=== PATIENT | male | born 1945 | race Caucasian/White ===

== ENCOUNTER 2024-09-03 07:59 | Day surgery (SDC) | payer MEDICARE, SELFPAY ==
[2024-09-03 08:17] VITALS: BP 140/90; PULSE 83; RESP 20; TEMP 36.3; O2SAT 98
[2024-09-03] MEDS: Tropicam./Phenyleph. (1/2.5%) 5 ML BTL OS ×3 (08:36→08:46)
--- NOTE | 2024-09-03 08:39 | W.ANESPRE ---
General Info Date of Service Date Performed: 09/03/24 Height: 5 ft 7 in Weight: 78.1 kg Body Mass Index (BMI): 26.9 Surgical Procedure: Operation Date: 09/03/24 10:40 Proposed Procedure Side Surgeon p Cataract Extraction with IOL Implant Left Margarito Chong MD Meds Allergies and Home Medications Allergies Allergy/AdvReac Type Severity Reaction Status Date / Time lisinopril Allergy Unknown Unknown Verified 09/03/24 08:33 prednisone Allergy Unknown Unknown Verified 09/03/24 08:33 verapamil Allergy Unknown Unknown Verified 09/03/24 08:33 Home Medication ?Medication ?Instructions ?Recorded acetaminophen 325 mg capsule 650 mg PO Q4H PRN 08/31/24 allopurinol 300 mg tablet 300 mg PO DAILY 08/31/24 amitriptyline 100 mg tablet 125 mg PO DAILY 08/31/24 amitriptyline 75 mg tablet 75 mg PO DAILY 08/31/24 cephalexin 500 mg capsule 500 mg PO DAILY 08/31/24 digoxin 125 mcg (0.125 mg) tablet 125 mcg PO DAILY 08/31/24 (Digitek) ferrous sulfate 325 mg (65 mg 325 mg PO DAILY 08/31/24 iron) tablet (Feosol) finasteride 5 mg tablet 5 mg PO DAILY 08/31/24 melatonin 3 mg capsule 3 mg PO QHS 08/31/24 metoprolol succinate 100 mg 100 mg PO DAILY 08/31/24 capsule sprinkle, ext. release 24 hr mirtazapine 15 mg tablet 15 mg PO DAILY 08/31/24 polyethylene glycol 3350 17 17 g PO DAILY PRN 08/31/24 gram/dose oral powder (ClearLax) potassium chloride 20 mEq 40 meq PO DAILY 08/31/24 tablet,extended release rivaroxaban 15 mg tablet (Xarelto) 15 mg PO DAILY 08/31/24 terazosin 2 mg capsule 2 mg PO BID 08/31/24 torsemide 20 mg tablet 20 mg PO DIRECTED 08/31/24 Current Visit Medications: Current Medications Generic Name Dose Route Start Last Admin Trade Name Freq PRN Reason Stop Dose Admin Acetaminophen 1,000 mg 09/03/24 06:00 Acetaminophen 500 Mg Tab PO 10/03/24 05:59 Q4H PRN PRN Balanced Salt Solution 500 ml 09/03/24 06:00 Balanced Salt Soln.-Plus 500 Ml Bag OP 10/03/24 05:59 DIRECTED THU Miscellaneous Medication 0 ml 09/03/24 06:00 Prednisolone 1%, Moxifloxacin 0.5%, Bromfenac 0.09% 5.6ml Btl OS 10/03/24 05:59 DIRECTED THU Miscellaneous Medication 0 ml 09/03/24 06:00 09/03/24 08:36 Tropicam./Phenyleph. (1/2.5%) 5 Ml Btl OS 10/03/24 05:59 1 drp DIRECTED THU Administration Tetracaine HCl 0 ml 09/03/24 06:00 Tetracaine 0.5% 4 Ml Btl OS 10/03/24 05:59 DIRECTED THU PFSH Active Problems Active Problems: Problem Status Onset Code Cortical age-related cataract, left eye Acute H25.012 Nuclear age-related cataract, left eye Acute H25.12 Medical History Medical History History of urinary retention Urinary catheter in situ Hx of fracture of hip Hx of malignant neoplasm of rectum Atrial fibrillation with RVR BPH (benign prostatic hyperplasia) Afib Dementia Irregular heart beat Hypertension Dyspnea on exertion History of cancer chemotherapy Arthritis Surgical History Surgical History History of artificial joint Tobacco Smoking/Tobacco Use Status: Former Tobacco Use Alcohol Alcohol Intake: former Substance Use Substance use: Never Substance use type: does not use Vital Signs and Lab Results Vital Signs Most Recent Vital Signs in EMR: Most Recent Vital Signs Temp Pulse Resp BP Pulse Ox 36.3 C L 83 20 140/90 98 09/03/24 08:17 09/03/24 08:17 09/03/24 08:17 09/03/24 08:17 09/03/24 08:17 Lab Results Blood Type / Crossmatch: No Data to Display Complete Blood Count: No Data to Display Complete Metabolic Panel: No Data to Display Liver Function Panel: No Data to Display Coagulation Panel: No Data to Display Cardiac Panel: No Data to Display Arterial Blood Gas: No Data to Display Venous Blood Gas: No Data to Display Pancreas Panel: No Data to Display Thyroid Panel: No Data to Display Infectious Disease: No Data to Display Blood Cultures: No Data to Display Toxicology Panel: No Data to Display Anesthesia Assessment and Plan Anesthesia History Personal History: No History of Anesthesia Complications Family History: No Family History of Anesthesia Complications Exercise Tolerance Exercise Tolerance: Metabolic Equivalents<4 Pertinent Negatives Pertinent Negatives: No Major Cardiovascular Symptoms or Complaints and No Major Pulmonary Symptoms or Complaints Cardiac & Pulmonary Exam Cardiac Exam: Normal S1/S2 Heart Sounds (Afib) Pulmonary Exam: Clear Bilateral Breath Sounds Implantable Cardiac Device Does patient have a Pacemaker or an ICD?: No Airway Exam Known Difficult Airway: No Mallampati Class: 2 Mouth Opening: Normal (> 3cm) Thyromental Distance: Greater than 3 cm Neck Range of Motion: Full ROM Neck Circumference: Normal Teeth Condition: Generalized Poor Dentition (4 teeth on bottom only, none loose per pt) ASA Classification ASA Score: ASA 3 Emergency Case?: No NPO Status NPO Status: NPO Clears >2 hours, Solids >8 hours Anesthesia Plan Resuscitation Status: Full Code Anesthesia Technique: MAC Anesthesia Airway Planned: Natural Airway Monitors Used: Standard Monitors
[2024-09-03 09:11] VITALS: BMI 26.9
[2024-09-03] MEDS: Povidone-Iodine Ophth 30 ML BTL (10:08)
[2024-09-03] MEDS: Tetracaine 0.5% 4 ML BTL OS (10:09)
[2024-09-03] MEDS: Lidocaine 1% Pres-Free 5 ML VIAL (10:16)
[2024-09-03] MEDS: Balanced Salt Soln.-PLUS 500 ML BAG OP (10:16)
[2024-09-03] MEDS: Duovisc Viscoelastic System EACH 1 EACH (10:16)
[2024-09-03] MEDS: Prednisolone 1%, Moxifloxacin 0.5%, Bromfenac 0.09% 5.6ML BTL OS (10:34)
[2024-09-03 10:44] VITALS: BP 147/86; PULSE 91; RESP 16; TEMP 36.9; O2SAT 97
--- NOTE | 2024-09-03 10:44 | W.PM.DSUDISC ---
Date of service: 09/03/24 Time of Service: 10:44 Discharge Plan Disposition Patient Disposition: Home Discharge Details Attending Provider: Margarito Chong Primary Care Provider: Rossana Rivas Home Meds and New Rx's Prescriptions: No Action mirtazapine 15 mg tablet 15 mg PO DAILY cephalexin 500 mg capsule 500 mg PO DAILY terazosin 2 mg capsule 2 mg PO BID acetaminophen 325 mg capsule 650 mg PO Q4H PRN melatonin 3 mg capsule 3 mg PO QHS metoprolol succinate 100 mg capsule,sprinkle,ER 24hr 100 mg PO DAILY ferrous sulfate [Feosol] 325 mg (65 mg iron) tablet 325 mg PO DAILY finasteride 5 mg tablet 5 mg PO DAILY digoxin [Digitek] 125 mcg (0.125 mg) tablet 125 mcg PO DAILY torsemide 20 mg tablet 20 mg PO DIRECTED Xarelto 15 mg tablet 15 mg PO DAILY Rx Instructions: must administer with evening meal potassium chloride 20 mEq tablet extended release 40 meq PO DAILY allopurinol 300 mg tablet 300 mg PO DAILY polyethylene glycol 3350 [ClearLax] 17 gram/dose powder 17 g PO DAILY PRN amitriptyline 100 mg tablet 125 mg PO DAILY amitriptyline 75 mg tablet 75 mg PO DAILY Discharge Instructions Stand Alone Forms: [facility] Post-Op CataractJose ([facility]) Discharge Orders Discharge Orders: Discharge Order (Routine); Ordered 09/03/24 Ordered By: Margarito Chong DS: Diagnosis Discharge Diagnosis (1) Cortical age-related cataract, left eye: Status: Resolved (2) Nuclear age-related cataract, left eye: Status: Resolved
--- NOTE | 2024-09-03 10:45 | W.PM.OP ---
Date of service: 09/03/24 Time of Service: 10:45 Operative Note Operative Note DATE OF PROCEDURE: 09/03/24 PRE-OP DIAGNOSIS: Nuclear/cortical cataract, left eye poorly dilating pupil, left eye POST-OP DIAGNOSIS: same PROCEDURE: Cataract extraction using phacoemulsification with intraocular lens implant, left eye Pupillary dilation and iris stabilization with 6.25 mm pupil expansion device SURGEON: Margarito Chong ANESTHESIA TYPE: Local By Surgeon and MAC Refer to Anesthesia Record PATHOLOGY: none sent COMPLICATIONS: None Patient was transported to: same day Patient's condition: stable Implants: Dayo Clareon [id number] Indications: Progressive decreased vision due to cataract, left eye Procedure Description: CATARACT SURGERY OPERATIVE REPORT PREOPERATIVE DIAGNOSIS: Nuclear/cortical cataract, left eye Poorly dilating pupil, left eye POSTOPERATIVE DIAGNOSIS: Same OPERATION: Cataract extraction using phacoemulsification with posterior chamber intraocular lens implant, left eye. IOL: IOL Cotton Weigher Operator/Model: Dayo Clareon [id number] IOL Power: + 19.5 diopters IOL Serial Number: [id number] Optic Diameter: 6.0mm Haptic/Overall Diameter: 13.0mm PHACO INFO: Dayo Centurion Vision System with OZil and Active Fluidics Cumulative Dispersed Energy (CDE): 7.22 seconds SURGEON: Margarito Chong MD, MEHNAZ ANESTHESIA: Monitored Anesthesia Care (MAC), with local sub-tenon's anesthetic infiltration COMPLICATIONS: None SPECIMENS: None INDICATIONS FOR PROCEDURE: The patient is a 79-year-old male with history of diminished visual acuity in his left eye secondary to the development of nuclear/cortical cataract. He is significantly symptomatic that he desires cataract surgery and attempt to improve and maximize his vision. He has a very poorly dilating pupil, undilated pupil size 2 mm, dilated 4.5 mm. The option of cataract surgery was offered to the patient and he wished to proceed. See office notes for detailed information. PROCEDURE: The correct surgical eye was identified and marked as the left eye and the pupil was dilated in the preoperative area using mydriatics and cycloplegics. The dilated pupil size was 4.0 mm. Oral sedation was administered in the form of an Imprimis MKO Melt (midazolam 3mg/ketamine 25mg/ondansetron 2mg). The patient was brought to the operating room where cardiopulmonary monitoring was instituted and surgical time-out was performed, confirming the correct operative eye and IOL power. Topical anesthesia was administered and ophthalmic povidone-iodine 5% was instilled into the conjunctival fornices. The haily-ocular area was prepped with Betadine 10% solution and draped in the usual sterile fashion for intraocular surgery, including an aperture drape. A Tegaderm transparent film dressing was cut in half and used to cover the lashes and lid margins. Care was taken to sequester the lashes and lid margins under the Tegaderm dressing. A lid speculum was placed between the lids of the operative eye and the Dayo LuxOR Revalia operating microscope was maneuvered into position. Denisse scissors were then used to make a conjunctival buttonhole approximately 6mm posterior to the limbus in the inferonasal quadrant. Blunt dissection was carried out to expose bare sclera, and a blunt-tipped sub-tenon?s anesthesia cannula was introduced and passed posteriorly along the globe where non-preserved plain lidocaine was injected into posterior sub-Tenon?s space. A sideport knife was used to make a paracentesis port. Intraocular phenylephrine/lidocaine was injected into the anterior chamber. The anterior chamber was then filled with viscoelastic. A keratome knife was used construct a two-plane clear corneal tunnel extending 2.0mm into clear cornea. A 6.25 mm pupillary expansion device was inserted into the pupillary space and engaged with the Kuglen hook. A flap was raised on the anterior capsule and capsulorhexis forceps were used to complete a continuous curvilinear capsulorhexis of 5.0 mm. Balanced salt solution was then used to perform cortical cleaving hydrodissection and nuclear hydrodelineation until the lens could be freely rotated within the capsular bag. The lens nucleus was then disassembled and removed within the capsular bag and iris plane using phacoemulsification. Residual cortical material was removed using the irrigation/aspiration handpiece. The posterior capsule was carefully polished to remove as much residual lens epithelial cells as safely possible. The capsular bag was then inflated and the anterior chamber deepened with viscoelastic. The lens implant described above was inserted into the capsular bag using the Dayo Autonome Injector. A Kuglen hook was used to dial the IOL into position. The pupil expansion device was then removed in the reverse order of its insertion. Residual viscoelastic was then removed first from posterior to the IOL, then from the anterior chamber using the I/A handpiece. The lens implant was noted to center nicely within the capsular bag. The incisions were stromally hydrated, and the anterior chamber was reformed using BSS. Then 0.5cc of moxifloxacin 1.0mg/ml were injected into the capsular bag and anterior chamber. The incisions were checked with a Weck spear and found to be secure. Several drops of ophthalmic povidone-iodine 5% were then applied to the eye followed by two drops of combination steroid/NSAID/antibiotic solution. The drapes were removed and a clear plastic protective eye shield was placed over the eye. The patient was then returned to Same Day Surgery in stable condition.
[2024-09-03 11:22] VITALS: BP 140/86; PULSE 86; RESP 16; TEMP 36.9; O2SAT 97
--- NOTE | 2024-09-03 11:34 | W.ANESPOSTOP ---
Postoperative Evaluation Date, Time and Location Date Performed: 09/03/24 Time Performed: 10:55 Patient Location: Day Surgery Unit Vital Signs Most Recent Imported Vital Signs: Most Recent Vital Signs Temp Pulse Resp BP Pulse Ox 36.9 C 86 16 140/86 97 09/03/24 11:22 09/03/24 11:22 09/03/24 11:22 09/03/24 11:22 09/03/24 11:22 Pain Score Most Recent Pain Score: Most Recent Pain Score Pain Level 0 09/03/24 11:22 Assessment Mental Status: Awake (Alert & Oriented to Patient Baseline) Airway and Respiratory Function: Patent airway with normal (patient baseline) respiratory exam Cardiovascular Function: Hemodynamically Stable Hydration Status: Adequately Hydrated Nausea & Vomiting: No Nausea or Vomiting Pain: Pt. Denies Any Pain Peripheral Nerve Block: Patient did not receive a nerve block
== END 2024-09-03 11:29 | disposition home or self-care (01) ==
LOC: SUR 07:59
PROVIDERS: PCP Family Medicine; Visit Provider Ophthalmology
PROC: (CPT 66982; principal; 2024-09-03 10:30)
DX: H25.012 Cortical age-related cataract, left eye (principal); H25.12 Age-related nuclear cataract, left eye; H57.09 Other anomalies of pupillary function
CPT/HCPCS: 66982; 00123; V2632; J2003

== ENCOUNTER 2024-09-17 07:02 | Day surgery (SDC) | payer MEDICARE, SELFPAY ==
[2024-09-17] MEDS: Tropicam./Phenyleph. (1/2.5%) 5 ML BTL OD ×3 (07:15→07:24)
[2024-09-17 07:17] VITALS: BP 134/71; PULSE 93; RESP 17; TEMP 36.6; O2SAT 95
--- NOTE | 2024-09-17 07:42 | ANES.PREOP_ITS ---
General Info Date of Service Date Performed: 09/17/24 Height: 5 ft 7 in Weight: 77.564 kg Body Mass Index (BMI): 26.7 Surgical Procedure: Operation Date: 09/17/24 09:40 Proposed Procedure Side Surgeon p Cataract Extraction with IOL Implant Right Margarito Chong MD Meds Allergies and Home Medications Allergies Allergy/AdvReac Type Severity Reaction Status Date / Time lisinopril Allergy Unknown Unknown Verified 09/17/24 07:28 prednisone Allergy Unknown Unknown Verified 09/17/24 07:28 verapamil Allergy Unknown Unknown Verified 09/17/24 07:28 Home Medication ?Medication ?Instructions ?Recorded acetaminophen 325 mg capsule 650 mg PO Q4H PRN 08/31/24 allopurinol 300 mg tablet 300 mg PO DAILY 08/31/24 amitriptyline 100 mg tablet 125 mg PO DAILY 08/31/24 amitriptyline 75 mg tablet 75 mg PO DAILY 08/31/24 cephalexin 500 mg capsule 500 mg PO DAILY 08/31/24 digoxin 125 mcg (0.125 mg) tablet 125 mcg PO DAILY 08/31/24 (Digitek) ferrous sulfate 325 mg (65 mg 325 mg PO DAILY 08/31/24 iron) tablet (Feosol) finasteride 5 mg tablet 5 mg PO DAILY 08/31/24 melatonin 3 mg capsule 3 mg PO QHS 08/31/24 metoprolol succinate 100 mg 100 mg PO DAILY 08/31/24 capsule sprinkle, ext. release 24 hr mirtazapine 15 mg tablet 15 mg PO DAILY 08/31/24 potassium chloride 20 mEq 40 meq PO DAILY 08/31/24 tablet,extended release rivaroxaban 15 mg tablet (Xarelto) 15 mg PO DAILY 08/31/24 terazosin 2 mg capsule 2 mg PO BID 08/31/24 torsemide 20 mg tablet 20 mg PO DIRECTED 08/31/24 Current Visit Medications: Current Medications Generic Name Dose Route Start Last Admin Trade Name Freq PRN Reason Stop Dose Admin Acetaminophen 1,000 mg 09/17/24 07:00 Acetaminophen 500 Mg Tab PO 10/17/24 06:59 Q4H PRN PRN Balanced Salt Solution 500 ml 09/17/24 07:00 Balanced Salt Soln.-Plus 500 Ml Bag OP 10/17/24 06:59 DIRECTED THU Miscellaneous Medication 0 ml 09/17/24 07:00 Prednisolone 1%, Moxifloxacin 0.5%, Bromfenac 0.09% 5.6ml Btl OD 10/17/24 06:59 DIRECTED THU Miscellaneous Medication 0 ml 09/17/24 07:00 09/17/24 07:24 Tropicam./Phenyleph. (1/2.5%) 5 Ml Btl OD 10/17/24 06:59 1 drp DIRECTED THU Administration Tetracaine HCl 0 ml 09/17/24 07:00 Tetracaine 0.5% 4 Ml Btl OD 10/17/24 06:59 DIRECTED THU PFSH Active Problems Active Problems: Problem Status Onset Code Cortical age-related cataract, right eye Acute H25.011 Nuclear age-related cataract, right eye Acute H25.11 Cortical age-related cataract, left eye Resolved H25.012 Nuclear age-related cataract, left eye Resolved H25.12 Medical History Medical History Hx: UTI (urinary tract infection) 09/13/24 History of urinary retention Urinary catheter in situ Hx of fracture of hip Hx of malignant neoplasm of rectum Atrial fibrillation with RVR BPH (benign prostatic hyperplasia) Afib Dementia Irregular heart beat Hypertension Dyspnea on exertion History of cancer chemotherapy Arthritis Surgical History Surgical History History of artificial joint Tobacco Smoking/Tobacco Use Status: Former Tobacco Use Alcohol Alcohol Intake: former Substance Use Substance use: Never Substance use type: does not use Vital Signs and Lab Results Vital Signs Most Recent Vital Signs in EMR: Most Recent Vital Signs Temp Pulse Resp BP Pulse Ox 36.6 C 93 H 17 134/71 95 09/17/24 07:17 09/17/24 07:17 09/17/24 07:17 09/17/24 07:17 09/17/24 07:17 Lab Results Blood Type / Crossmatch: No Data to Display Complete Blood Count: No Data to Display Complete Metabolic Panel: No Data to Display Liver Function Panel: No Data to Display Coagulation Panel: 2 No Data to Display Cardiac Panel: No Data to Display Arterial Blood Gas: No Data to Display Venous Blood Gas: No Data to Display Pancreas Panel: No Data to Display Thyroid Panel: No Data to Display Infectious Disease: No Data to Display Blood Cultures: No Data to Display Toxicology Panel: No Data to Display Anesthesia Assessment and Plan Anesthesia History Personal History: No History of Anesthesia Complications Family History: No Family History of Anesthesia Complications Exercise Tolerance Exercise Tolerance: Metabolic Equivalents<4 Pertinent Negatives Pertinent Negatives: No Major Cardiovascular Symptoms or Complaints Cardiac & Pulmonary Exam Cardiac Exam: Normal S1/S2 Heart Sounds Pulmonary Exam: Clear Bilateral Breath Sounds Implantable Cardiac Device Does patient have a Pacemaker or an ICD?: No Airway Exam Known Difficult Airway: No Mallampati Class: 2 Mouth Opening: Normal (> 3cm) Thyromental Distance: Greater than 3 cm Neck Range of Motion: Full ROM Neck Circumference: Normal Teeth Condition: Generalized Poor Dentition (4 teeth on bottom only, none loose per pt) ASA Classification ASA Score: ASA 3 Emergency Case?: No NPO Status NPO Status: NPO Clears >2 hours, Solids >8 hours Anesthesia Plan Resuscitation Status: Full Code Anesthesia Technique: MAC Anesthesia Airway Planned: Natural Airway Monitors Used: Standard Monitors Preoperative Comments:: Prior cataract a few weeks ago, tolerated MKO well, would like to receive again.
[2024-09-17 07:43] VITALS: BMI 26.7
[2024-09-17] MEDS: Tetracaine 0.5% 4 ML BTL OD (07:56)
[2024-09-17] MEDS: Povidone-Iodine Ophth 30 ML BTL (07:56)
[2024-09-17] MEDS: Duovisc Viscoelastic System EACH 1 EACH (08:02)
[2024-09-17] MEDS: Balanced Salt Soln.-PLUS 500 ML BAG OP (08:02)
[2024-09-17] MEDS: Lidocaine 1% Pres-Free 5 ML VIAL (08:02)
[2024-09-17] MEDS: Prednisolone 1%, Moxifloxacin 0.5%, Bromfenac 0.09% 5.6ML BTL OD (08:07)
--- NOTE | 2024-09-17 08:31 | ROE_ITS ---
Operative Note Operative Note PRE-OP DIAGNOSIS: Nuclear/cortical cataract, right eye POST-OP DIAGNOSIS: same PROCEDURE: Cataract extraction using phacoemulsification with intraocular lens implant, right eye SURGEON: Margarito Chong ANESTHESIA TYPE: Local By Surgeon and MAC Refer to Anesthesia Record ESTIMATED BLOOD LOSS: 0 PATHOLOGY: none sent COMPLICATIONS: None Patient was transported to: same day Patient's condition: stable Implants: Dayo Clareon [id number] Indications: Progressive decreased vision due to cataract, right eye Procedure Description: CATARACT SURGERY OPERATIVE REPORT PREOPERATIVE DIAGNOSIS: Nuclear/cortical cataract, right eye POSTOPERATIVE DIAGNOSIS: Same OPERATION: Cataract extraction using phacoemulsification with posterior chamber intraocular lens implant, right eye. IOL: IOL Airborne Electronics Analyst/Model: Dayo Clareon [id number] IOL Power: + 19.5 diopters IOL Serial Number: [id number] Optic Diameter: 6.0mm Haptic/Overall Diameter: 13.0mm PHACO INFO: Dayo Centurion Vision System with OZil and Active Fluidics Cumulative Dispersed Energy (CDE): 6.77 seconds SURGEON: Margarito Chong MD, MEHNAZ ANESTHESIA: Monitored Anesthesia Care (MAC), with local sub-tenon's anesthetic infiltration COMPLICATIONS: None SPECIMENS: None INDICATIONS FOR PROCEDURE: The patient is a 79-year-old male with history of diminished visual acuity in both eyes secondary to the development of bilateral nuclear/cortical cataract. He has already undergone cataract surgery in the left eye and is doing well postoperatively. He now presents for cataract surgery in the right eye. See office notes for detailed information. PROCEDURE: The correct surgical eye was identified and marked as the right eye and the pupil was dilated in the preoperative area using mydriatics and cycloplegics. The dilated pupil size was 6.0 mm. Oral sedation was administered in the form of an Imprimis MKO Melt (midazolam 3mg/ketamine 25mg/ondansetron 2mg). The patient elected to proceed without oral sedation. The patient was brought to the operating room where cardiopulmonary monitoring was instituted and surgical time-out was performed, confirming the correct operative eye and IOL power. Positioning was extremely challenging due to the patient's severe kyphosis. Topical anesthesia was administered and ophthalmic povidone-iodine 5% was instilled into the conjunctival fornices. The haily-ocular area was prepped with Betadine 10% solution and draped in the usual sterile fashion for intraocular surgery, including an aperture drape. A Tegaderm transparent film dressing was cut in half and used to cover the lashes and lid margins. Care was taken to sequester the lashes and lid margins under the Tegaderm dressing. A lid speculum was placed between the lids of the operative eye and the Dayo LuxOR Revalia operating microscope was maneuvered into position. Denisse scissors were then used to make a conjunctival buttonhole approximately 6mm posterior to the limbus in the inferonasal quadrant. Blunt dissection was carried out to expose bare sclera, and a blunt-tipped sub-tenon?s anesthesia cannula was introduced and passed posteriorly along the globe where non- preserved plain lidocaine was injected into posterior sub-Tenon?s space. A sideport knife was used to make a paracentesis port. Intraocular phenylephrine/lidocaine was injected into the anterior chamber. The anterior chamber was then filled with viscoelastic. A keratome knife was used to construct a two--plane clear corneal tunnel extending 2.0mm into clear cornea. A flap was raised on the anterior capsule and capsulorhexis forceps were used to complete a continuous curvilinear capsulorhexis of 5.0 mm. Balanced salt solution was then used to perform cortical cleaving hydrodissection and nuclear hydrodelineation until the lens could be freely rotated within the capsular bag. The lens nucleus was then disassembled and removed within the capsular bag and iris plane using phacoemulsification. Residual cortical material was removed using the I/A handpiece. The posterior capsule was carefully polished to remove as much residual lens epithelial cells as safely possible. The capsular bag was then inflated and the anterior chamber deepened with cohesive viscoelastic. The lens implant described above was inserted into the capsular bag using the Dayo Autonome Injector. A Kuglen hook was used to dial the IOL into position. Residual viscoelastic was then removed first from posterior to the IOL, then from the anterior chamber using the I/A handpiece. The lens implant was noted to center nicely within the capsular bag. The incisions were stromally hydrated, and the anterior chamber was reformed using BSS. Then 0.5cc of moxifloxacin 1.0mg/ml were injected into the capsular bag and anterior chamber. The incisions were checked with a Weck spear and found to be secure. Several drops of ophthalmic povidone-iodine 5% were then applied to the eye followed by two drops of combination steroid/NSAID/antibiotic solution. The drapes were removed and a clear plastic protective eye shield was placed over the eye. The patient was then returned to Same Day Surgery in stable condition. Date of Procedure: 09/17/24
--- NOTE | 2024-09-17 08:31 | W.PM.DSUDISC ---
Date of service: 09/17/24 Time of Service: 08:31 Discharge Plan Disposition Patient Disposition: Home Discharge Details Attending Provider: Margarito Chong Primary Care Provider: Rossana Rivas Home Meds and New Rx's Prescriptions: No Action mirtazapine 15 mg tablet 15 mg PO DAILY cephalexin 500 mg capsule 500 mg PO DAILY terazosin 2 mg capsule 2 mg PO BID acetaminophen 325 mg capsule 650 mg PO Q4H PRN melatonin 3 mg capsule 3 mg PO QHS metoprolol succinate 100 mg capsule,sprinkle,ER 24hr 100 mg PO DAILY ferrous sulfate [Feosol] 325 mg (65 mg iron) tablet 325 mg PO DAILY finasteride 5 mg tablet 5 mg PO DAILY digoxin [Digitek] 125 mcg (0.125 mg) tablet 125 mcg PO DAILY torsemide 20 mg tablet 20 mg PO DIRECTED Xarelto 15 mg tablet 15 mg PO DAILY Rx Instructions: must administer with evening meal potassium chloride 20 mEq tablet extended release 40 meq PO DAILY allopurinol 300 mg tablet 300 mg PO DAILY amitriptyline 100 mg tablet 125 mg PO DAILY amitriptyline 75 mg tablet 75 mg PO DAILY Discharge Instructions Stand Alone Forms: [facility] Post-Op CataractJose ([facility]) Discharge Orders Discharge Orders: Discharge Order (Routine); Ordered 09/17/24 Ordered By: Margarito Chong DS: Diagnosis Discharge Diagnosis (1) Cortical age-related cataract, right eye: Status: Resolved (2) Nuclear age-related cataract, right eye: Status: Resolved
[2024-09-17 08:32] VITALS: BP 146/94; PULSE 83; RESP 16; TEMP 36.5; O2SAT 96
[2024-09-17] MEDS: Ondansetron O.D.T. 4 MG TABEF PO (08:51)
[2024-09-17 09:15] VITALS: BP 127/75; PULSE 80; RESP 16; TEMP 36.5; O2SAT 97
--- NOTE | 2024-09-17 10:06 | W.ANESPOSTOP ---
Postoperative Evaluation Date, Time and Location Date Performed: 09/17/24 Time Performed: 09:05 Patient Location: [facility] Unit Vital Signs Most Recent Imported Vital Signs: Most Recent Vital Signs Temp Pulse Resp BP Pulse Ox 36.5 C 80 16 127/75 97 09/17/24 09:15 09/17/24 09:15 09/17/24 09:15 09/17/24 09:15 09/17/24 09:15 Pain Score Most Recent Pain Score: Most Recent Pain Score Pain Level 0 09/17/24 09:15 Assessment Mental Status: Awake (Alert & Oriented to Patient Baseline) Airway and Respiratory Function: Patent airway with normal (patient baseline) respiratory exam Cardiovascular Function: Hemodynamically Stable Hydration Status: Adequately Hydrated Nausea & Vomiting: Active Nausea or Vomiting Present Nausea and Vomiting Management: Other (Nausea improving, partner at bedside) Pain: Pt. Denies Any Pain Peripheral Nerve Block: Patient did not receive a nerve block
== END 2024-09-17 09:35 | disposition home or self-care (01) ==
PROVIDERS: PCP Family Medicine; Visit Provider Ophthalmology
PROC: (CPT 66984; principal; 2024-09-17 09:30)
DX: H25.011 Cortical age-related cataract, right eye (principal); H25.11 Age-related nuclear cataract, right eye; Z98.42 Cataract extraction status, left eye
CPT/HCPCS: 66984; 00123; V2632; J2003